=== PATIENT | male | born 1970 | race Caucasian/White ===

== ENCOUNTER 2020-04-08 06:35 | Day surgery (SDC) | payer OTHER | END 2020-04-08 11:25 | disposition home or self-care (01) | LOC: AMB-ENDOS 06:35 | PROVIDERS: ATTEND Colon & Rectal Surgery | DX: K62.89 Other specified diseases of anus and rectum (principal); K64.2 Third degree hemorrhoids; Z12.11 Encounter for screening for malignant neoplasm of colon ==

== ENCOUNTER 2022-06-13 10:45 | Emergency (ER) | payer OTHER ==
[~2022-06-13] VITALS: Ht 172.7 cm; Wt 106.1 kg
[2022-06-13] MEDS ORDERED: PEPCID AC20 MG PO (17:46)
== END 2022-06-13 17:57 | disposition home or self-care (01) ==
LOC: ER 10:45
DX: B34.8 Other viral infections of unspecified site (principal); R10.13 Epigastric pain

== ENCOUNTER 2023-08-13 11:44 | Emergency (ER) | payer OTHER ==
[~2023-08-13] VITALS: Ht 182.9 cm; Wt 106.6 kg
[~2023-08-13 11:44] MED LIST: PEPCID AC20 MG PO
[2023-08-13] MEDS ORDERED: RESTORIL30 M1 (12:27)
[2023-08-13] MEDS ORDERED: CLORAZEPATE DI7.5 MG (12:27)
[2023-08-13 13:04] LABS: HEMATOCRIT 47.8 % (39.0-48.0); HEMOGLOBIN 16.6 g/dL (13-16.00); MEAN CELL VOLUME 90.3 fL (80.0-100.00); MEAN CORPUSCULAR HEMOGLOBIN 31.4 pg (27.00-32.0); MEAN CORPUSCULAR HGB CONC 34.7 g/dl (32.0-36.0); PLATELET COUNT 213 K/uL (150-450); RED BLOOD COUNT 5.29 M/uL (4.00-6.00); RED CELL DISTRIBUTION WIDTH 14.9 % (11.5-14.5)
[2023-08-13 13:31] LABS: CALCIUM 9.5 mg/dL (8.5-10.1); CREATININE SERUM 0.94 mg/dL (0.70-1.30); GFR 84.61; POTASSIUM 3.43 mEq/L (3.5-5.1)
== END 2023-08-13 14:41 | disposition home or self-care (01) ==
LOC: ER 11:44
PROVIDERS: General Practice
DX: R53.81 Other malaise (principal); Z20.822 Contact with and (suspected) exposure to COVID-19

== ENCOUNTER 2023-10-20 12:50 | Emergency (ER) | payer OTHER ==
[~2023-10-20] VITALS: Ht 182.9 cm; Wt 103.9 kg
[~2023-10-20 12:50] MED LIST changes: +CLORAZEPATE DI7.5 MG; +RESTORIL30 M1
[2023-10-20 18:17] LABS: HEMATOCRIT 50.1 % (39.0-48.0); HEMOGLOBIN 17.4 g/dL (13-16.00); MEAN CELL VOLUME 90.3 fL (80.0-100.00); MEAN CORPUSCULAR HEMOGLOBIN 31.4 pg (27.00-32.0); MEAN CORPUSCULAR HGB CONC 34.8 g/dl (32.0-36.0); PLATELET COUNT 218 K/uL (150-450); RED BLOOD COUNT 5.55 M/uL (4.00-6.00)
[2023-10-20 18:46] LABS: ALBUMIN 4.4 gm/dL (3.4-5.0); BILIRUBIN TOTAL 1.24 mg/dL (0.3-1.2); CALCIUM 9.9 mg/dL (8.5-10.1); CREATININE SERUM 0.82 mg/dL (0.70-1.30); GFR 99.05; GLOBULINA 4.1 G/DL (2.4-3.5); POTASSIUM 3.15 mEq/L (3.5-5.1); TOTAL PROTEIN 8.5 gm/dL (6.4-8.2)
== END 2023-10-20 20:24 | disposition home or self-care (01) ==
LOC: ER 12:50
PROVIDERS: General Practice
DX: B34.9 Viral infection, unspecified (principal); Z20.822 Contact with and (suspected) exposure to COVID-19

== ENCOUNTER → 2025-10-08 | Emergency (ER) | payer OTHER ==
[~2025-10-08] VITALS: Ht 182.9 cm; Wt 88.9 kg
[~2025-10-08] MED LIST changes: +CLONAZEPAM 0.5 MG TABLET PO ONE
== END | disposition left against medical advice (07) ==
LOC: ER 10:20
DX: F41.8 Other specified anxiety disorders (principal); F32.89 Other specified depressive episodes